=== PATIENT | female | born 1945 | race Caucasian/White ===

== ENCOUNTER 2017-02-20 07:39 | Inpatient (IN) | payer MEDICARE, OTHER ==
[2017-02-17 14:02] LABS: HEMATOCRIT 38.6 % (36.0-48.0); HEMOGLOBIN 12.8 g/dL (12.0-16.0)
[2017-02-17 14:21] LABS: BUN (BLOOD UREA NITROGEN) 13 MG/DL (6-23); CALCIUM, SERUM 9.6 MG/DL (8.5-10.4); CHLORIDE, SERUM 102 MMOL/L (96-112); CO2 (CARBON DIOXIDE) 37 MMOL/L (24-34); CREATININE 0.77 MG/DL (0.55-1.02); GFR AFRICAN AMERICAN 89 ML/MIN (>=60); GFR NON AFRICAN AMERICAN 77 ML/MIN (>=60); GLUCOSE, SERUM 86 MG/DL (60-99); POTASSIUM, SERUM 3.8 MMOL/L (3.5-5.3); SODIUM, SERUM 143 MMOL/L (135-148)
--- NOTE | ~2017-02-20 | OP ---
Record Of Operation [facility] [address] [place]. [address] NAME: JOSE FINNEGAN : 41 STATUS : DIS IN PAT#: [id number] AGE: 71 ADM/REG DATE : 02/20/17 MR#: [id number] REPORT SERV DATE: 03/01/17 DICTATED BY: STEFANO PINK DATE: 02/28/17 REPORT STATUS : Draft TRANSCRIBED BY: MODL DATE: 02/28/17 DATE OF PROCEDURE: 02/22/2017 ADDENDUM: This has already been dictated but for whatever the reason, there was a cut off, I am not sure why. This is just an addendum to the last dictation. So, at the end of the dictation where it has been cut off at the last sentence is as follows; With navigational assistance, I created a pilot highway patrol hole. Through the pedicles of C2 lateral masses of C3, 4, 5, 6, and the pedicles the C7 bilateral. After the pilot highway patrol holes were drilled, I then tapped each of the pedicles and the lateral mass. The C2-C7 lateral gutter including the facet joint and the lateral masses were decorticated. The polyaxial Vertex Select screws were inserted at each of the pedicles and lateral masses. The kaushal was then contoured for lordosis, was placed over the top loading tulip of the pedicle screws. Each of the set screws were inserted and tightened with a torque wrench providing rigid stability. Finally, a posterior lateral fusion was completed using a combination of Magna Fuse, allograft as well as extra-small dosage of bone protein. This very nicely stabilized the spine completely. Please note, I did have to extend the fusion higher and lower than originally thought because the bone was rather soft and additional points of fixation were necessary. Intraoperative, CT scan was repeated showing good position of all hardware. Vancomycin powder was placed in the wound. The myofascial layer was closed with the multiple layers of interrupted #1 Vicryl suture. The subcutaneous tissue closed with 2-0 Vicryl suture, 2-0 vertical mattress nylon suture used for skin closure. Sterile dressings applied. The patient returned to supine position. The Waldron was removed. The patient awakened, extubated, and taken recovery room in satisfactory condition having tolerated procedure well. MACARENA/JACOBY Stefano Pink D.O. / [id number] CC: [place] D.O.
--- NOTE | ~2017-02-20 | OP ---
Record Of Operation [facility] [address] [place]. [address] NAME: JOSE FINNEGAN : 41 STATUS : ADM IN PAT#: [id number] AGE: 71 ADM/REG DATE : 02/20/17 MR#: [id number] REPORT SERV DATE: 02/22/17 DICTATED BY: STEFANO PINK DATE: 02/22/17 REPORT STATUS : Draft TRANSCRIBED BY: MODDaja DATE: 02/22/17 DATE OF PROCEDURE: POSTOPERATIVE DIAGNOSIS: Grade 2 spondylolisthesis, severe spinal stenosis with cord compression and myelopathy C4-5, C5-6. POSTOPERATIVE DIAGNOSIS: Grade 2 spondylolisthesis, severe spinal stenosis with cord compression and myelopathy C4-5, C5-6. PROCEDURE: Second-stage surgery including posterior lateral spinal fusion with Vertex Select segmental instrumentation, C2 through C7. SUPERVISORY GEOGRAPHER: Gurjit Tyson. ANESTHESIA: General. ESTIMATED BLOOD LOSS: Less than 50 mL. INDICATIONS: The indications for surgery and risks were explained and listed in the history and physical. See that for detail. DESCRIPTION OF PROCEDURE: The patient was identified in the preop holding area, antibiotic prophylaxis given, brought to the operative suite. General anesthetic including endotracheal intubation was administered. Silveira catheter was already in place. The scalp was painted with Betadine solution. Waldron three-point fixation attached to the skull using 60 pounds torque in standard position. The Waldron was then attached to the top portion of the Mani frame. The patient was in a clamshell position with her neck in a neutral alignment. She was rotated 180 degrees into a prone position. The bony prominences were carefully padded. AP and lateral x-rays taken to ensure we had good alignment particularly sagittal alignment. The hairline had already been shaved. The previous sutures from two days ago were removed. The isolation drapes were placed. The neck was scrubbed with Hibiclens solution. DuraPrep was painted. Sterile drapes applied. The incision from prior stage I surgery was opened. The wound was copiously irrigated. We then used navigational registration by placing a registration frame on the spinous process of C2. The intraoperative CT scan with O-arm was obtained. CT information used to register the navigational system. With navigational assistance, I created a state pilot hole through the pedicle of C2, the lateral mass of C3, C4, C5, C6, and the pedicle of C7 bilateral. DICTATION ENDS HERE. Record Of Operation [facility] [address] [facility] [address] NAME: JOSE FINNEGAN : 43 STATUS : ADM IN [facility]#: [id number] AGE: 71 ADM/REG DATE : 02/20/17 MR#: [id number] REPORT SERV DATE: 02/22/17 DICTATED BY: STEFANO PINK DATE: 02/22/17 REPORT STATUS : Draft TRANSCRIBED BY: JACOBY DATE: 02/22/17 /JACOBY Stefano Pink D.O. / [id number] CC: [place] D.O.
--- NOTE | ~2017-02-20 | DS ---
Discharge Summary [facility] [address] [place]. [address] NAME: JOSE FINNEGAN : 41 STATUS : DIS IN PAT#: [id number] AGE: 71 ADM/REG DATE : 02/20/17 MR#: [id number] REPORT SERV DATE: 03/07/17 DICTATED BY: STEFANO PINK DATE: 03/06/17 REPORT STATUS : Draft TRANSCRIBED BY: MODDaja DATE: 03/06/17 Data Collection from hospitalization DISCHARGE DIAGNOSES: 1. Grade 2 spondylolisthesis with severe spinal stenosis and cord compression and myelopathy, C4-5. 2. Hypertension. 3. Hypercholesterolemia. 4. Tobacco abuse. 5. Osteoarthritis. 6. Former smoker. CONSULTATIONS: None. PROCEDURES PERFORMED: 1. Navigation-assisted surgery; laminectomy, foraminotomy, partial facetectomy at C4 and C5; anterior cervical diskectomy, C4-5 and C5-6; C5 corpectomy; anterior interbody fusion with allograft; stackable interbody cage, C4-C6; segmental instrumentation with Venture plating, C4-C6 on 02/20/2017. 2. Second-stage surgery including posterior lateral spinal fusion with Vertex Select segmental instrumentation, C2 through C7, 02/22/2017. PATHOLOGY: Spine, cervical bone, and tissue - fibrocartilage consistent with intervertebral disk. Benign bone fragments. MEDICATIONS: Colace 100 mg twice a day, Remeron 15 mg at bedtime, multivitamins one tablet daily, Xanax 1 mg twice a day as needed, Dulcolax 15 mg as needed, [place] 7.5/325 one to two tablets every six hours as needed, milk of magnesia 30 mL twice a day as needed, and Tenoretic half tablet every evening. CONDITION AT DISCHARGE: Stable. DISPOSITION: The patient was discharged to [facility] on a regular diet with activities as instructed. HOSPITAL COURSE: This is a 71-year-old female who presented to the office on prior to admission with neck pain, shoulder and arm pain, and rather significant weakness in the upper extremities. Plain x-rays revealed grade 2 and almost grade 3 spondylolisthesis at C4 C5. MRI showed severe canal compromise centrally as well as laterally at C4-C5. The anterior body of C5 superiorly had been eroded completely. Posteriorly, the posterior- superior edge of the body of C5 is impacted into the cord anteriorly. There was also a ligamentum flavum posteriorly that had hypertrophied and was compressing the cord, so there was a marked decrease in the overall core diameter at the C4-C5 level. Treatment options were discussed and it was elected to proceed with surgical intervention. She was admitted to the hospital at this time for further evaluation and treatment. Upon admission, she was taken to the operating room where she underwent the above-mentioned procedure. She tolerated this well, and there were no complications. On postop day #1, she Discharge Summary [facility] [address] [facility] [place]. [address] NAME: JOSE FINNEGAN : 41 STATUS : DIS IN PAT#: [id number] AGE: 71 ADM/REG DATE : 02/20/17 MR#: [id number] REPORT SERV DATE: 03/07/17 DICTATED BY: STEFANO PINK DATE: 03/06/17 REPORT STATUS : Draft TRANSCRIBED BY: MODDaja DATE: 03/06/17 was doing okay. She was able to swallow applesauce and soft foods. She was going to undergo her second stage of her surgical intervention the following day. On 02/22/2017, she was taken back to the operating room where she underwent the above-mentioned procedure. She tolerated this well, and there were no complications. On 02/23/2017, she was doing well. She had normal distal pulses. Discharge planning was performed. The next day, she said her arms were not burning like they did preoperatively. She was up sitting in a bedside chair. An ice pack was in place on her back. We encouraged her to mobilize as tolerated. Blood pressure was controlled. On 02/25/2017, discharge instructions were given. Due to her improved and stable condition, she was discharged to [facility] with the above stated instructions. Information collected by: Kimberly Deras I submit the above information as my discharge summary. TG/JACOBY Stefano Pink D.O. / [id number] CC: [place] D.O. [facility]
--- NOTE | ~2017-02-20 | PREOPHP ---
PreOp History and Physical [facility] [address] [place]. [address] NAME: JOSE FINNEGAN : 41 STATUS : ADM IN PAT#: [id number] AGE: 71 ADM/REG DATE : 02/20/17 MR#: [id number] REPORT SERV DATE: 02/20/17 DICTATED BY: STEFANO PINK DATE: 02/20/17 REPORT STATUS : Draft TRANSCRIBED BY: JACOBY DATE: 02/20/17 CHIEF COMPLAINT: Neck pain, shoulder and arm pain, weakness in her arms. HISTORY OF PRESENT ILLNESS: This is a 71-year-old female, who presented to the office just last with neck pain, shoulder and arm pain, and rather significant weakness in the upper extremities. She is so weak when I tested her, her deltoid function was only 3-/5, her biceps was 3+/5, and her muscle groups of C7 and T1 were approximately 4/5, the lower extremities seemed to be 5/5. She had hyperreflexia, upgoing toes, some sustained ankle clonus, all compatible with myelopathy. Plain x-rays reveal a grade 2, almost grade 3 spondylolisthesis at C4-C5. MRI shows severe canal compromise centrally as well as laterally at C4-C5. The anterior body of C5 superiorly has been eroded completely. Posteriorly, the posterior-superior edge of the body of C5 is impacted into the cord anteriorly. There was also ligamentum flavum posteriorly that is hypertrophied and compressing the cord, so there is a marked decrease in overall cord diameter at the C4-C5 level. With the above history, she is brought to surgery for a posterior approach initially with laminectomy and partial facetectomy of C4 and C5. We will then close posteriorly and turn anteriorly for an anterior diskectomy at C4-C5, C5-C6 and a corpectomy of C5, followed by interbody fusion with stackable cage from C4-C6 with anterior instrumentation of C4-C6. Ultimately, we will return in two to three days and add additional posterior instrumentation. The risks, benefits, alternatives and expectations, up to and including everything with quadriplegia or even , have been explained in great detail. Consent form has been signed. PAST MEDICAL HISTORY: Has included hypertension, hypercholesterolemia, tobacco abuse, osteoarthritis. She has had previous right shoulder surgery x2, bilateral knee arthroscopy and knee arthroplasty, appendectomy, cholecystectomy, colonoscopy and a polyp removal. She has also had abdominal hysterectomy, a bladder suspension surgery. In addition, she has had cataract extractions and lens implants bilaterally. CURRENT MEDICATIONS: Include Fosamax, Xanax, aspirin, Tenoretic, Mobic, Remeron, multiple vitamins, tramadol. ALLERGIES: STATIN DRUGS. SOCIAL HISTORY: She is . Retired. Has smoked previously, a [id number] history. No alcohol history. FAMILY HISTORY: Positive for hypertension and coronary artery disease. REVIEW OF SYSTEMS: She currently denies chest pain, pressure, and shortness of breath. She has had a previous cardiac stress test, which was negative. PHYSICAL EXAMINATION: VITAL SIGNS: She is 5 feet 2 inches, 125 pounds, BMI is 23. GENERAL: She is alert, cooperative, well oriented. She has some difficulty ambulating because of the imbalance and altered gait. PreOp History and Physical [address] [address] NAME: JOSE FINNEGAN : 41 STATUS : ADM IN [facility]#: [id number] AGE: 71 ADM/REG DATE : 02/20/17 MR#: [id number] REPORT SERV DATE: 02/20/17 DICTATED BY: STEFANO PINK DATE: 02/20/17 REPORT STATUS : Draft TRANSCRIBED BY: JACOBY DATE: 02/20/17 HEENT: She is normocephalic. Pupils have been altered by prior surgery. Extraocular are muscles intact. Oral exam is grossly normal. NECK: Has no gross deformities. She has a negative Spurling sign. EXTREMITIES: Negative abducted arm sign. A mildly positive Lhermitte sign with extension, but negative with flexion. Her upper extremity strength is outlined above. Her deltoid is 3-/5. Her biceps is 3+/5. The wrist extensor, wrist flexor, and intrinsics are 4/5. The lower extremities are 5/5, but there is hyperreflexia, there are upgoing toes, and there is some ankle clonus. Sensory exam decreased in more of a stocking-glove distribution in the arms and legs. ORTHOPEDIC: She has no pain with moving hips, knees, or ankles. There are good pulses in all four extremities. No abnormal skin lesions are found. ASSESSMENT: Grade 2 spondylolisthesis and severe spinal stenosis with myelopathy, C4-C5. RECOMMENDATIONS: As listed above. /MODL Stefano Pink D.O. / [id number] CC: [place] D.O.
--- NOTE | ~2017-02-20 | OP ---
Record Of Operation [facility] [address] [place]. [address] NAME: JOSE FINNEGAN : 41 STATUS : ADM IN PAT#: [id number] AGE: 71 ADM/REG DATE : 02/20/17 MR#: [id number] REPORT SERV DATE: 02/20/17 DICTATED BY: STEFANO PINK DATE: 02/20/17 REPORT STATUS : Draft TRANSCRIBED BY: MODL DATE: 02/20/17 DATE OF PROCEDURE: 02/20/2017 PREOPERATIVE DIAGNOSIS: Grade 2 spondylolisthesis, severe spinal stenosis, with cord compression, and myelopathy, C4-5. POSTOPERATIVE DIAGNOSIS: Grade 2 spondylolisthesis, severe spinal stenosis, with cord compression, and myelopathy, C4-5. PROCEDURES: 1. Navigation-assisted surgery. 2. Laminectomy, foraminotomy, partial facetectomy at C4 and C5. 3. Anterior cervical diskectomy, C4-5 and C5-6. 4. C5 corpectomy. 5. Anterior interbody fusion with allograft. 6. Stackable interbody cage, C4 to C6. 7. Segmental instrumentation with Venture plating, C4 to C6. SURGEON: Stefano Pink D.O. SUPERVISOR [employer]BE[employer] TEXTILE: Gurjit Tyson. ANESTHESIA: General. ESTIMATED BLOOD LOSS: 50 mL. INDICATION FOR SURGERY: Indication for surgery and risks were explained in the history and physical. See that for detail. DESCRIPTION OF PROCEDURE: Antibiotic prophylaxis was given. Neurophysiology monitoring leads were inserted. The patient was brought to the operative suite. General anesthetic including endotracheal intubation was administered. Silveira catheter was placed with sterile technique. The patient was in a neutral alignment on a Mani spine frame. The scalp was painted with Betadine solution. Waldron three-point fixation was attached to the skull using 60 pounds torque in standard position. The Waldron was attached to the top portion of the Mani spine frame. She was in a clamshell position rotated 180 degrees into a prone position. Bony prominences were carefully padded. The hairline was shaved. Isolation drapes were placed. The neck was scrubbed with Hibiclens solution. DuraPrep was painted. Sterile drapes were applied. With loupe magnification and headlight illumination, a midline incision was carried out. The ligamentum nuchae was divided in the midline. The paraspinous muscles were retracted laterally all the way to the tip of the lateral masses from C2 to C7. The interspinous ligaments and tissue removed between C5-6, C4-5, and C3-4. I then entered at the bottom of C5 using a combination of a cutting bur, a tatiana bur, and a thin-footed 1 and 2 mm Kerrison rongeur. I removed the entire lamina of C5 and then C4. I removed a portion of Record Of Operation [place] [address] [place]. [address] NAME: JOSE FINNEGAN : 41 STATUS : ADM IN PAT#: [id number] AGE: 71 ADM/REG DATE : 02/20/17 MR#: [id number] REPORT SERV DATE: 02/20/17 DICTATED BY: STEFANO PINK DATE: 02/20/17 REPORT STATUS : Draft TRANSCRIBED BY: JACOBY DATE: 02/20/17 the facet using burs. The foramen and the canal was wide open, afterwards the wound was irrigated. We then placed some vancomycin powder in the wound. The myofascial layer was closed with interrupted #1 Vicryl suture. The subcutaneous tissue closed with 2-0 Vicryl suture, 2-0 vertical mattress nylon suture was used for skin closure. Sterile dressings were then applied. The patient was then re-clamshelled on a Mani spine frame. Rotated another 180 degrees back to a supine position and the Waldron was attached to the director of head start of the Mani frame. The [employer] navigational registration frame was attached to the [place]. Isolation drapes were placed. The neck was scrubbed with Hibiclens solution. DuraPrep was painted. Sterile drapes were applied. Please note, that in the posterior procedure as well as the anterior procedure, we did use navigational assistance throughout the surgery, because we felt that it was necessary to have the safest and most precise dissection, as well as using it to identify the correct level of surgery, and avoid the most radiation possible. After the anterior repositioning, the intraoperative CT scan with O-arm was repeated. CT information again was used to register the navigational system. After a midbody of L5 on the left side, a transverse 2.5 cm skin incision was carried out using a Beltrán-Carballo technique. The platysma muscle was incised in line with the skin incision. The superficial layer of the deep cervical fascia was released along the anterior border of sternocleidomastoid. Blunt dissection was carried out to the retropharyngeal space where the longus coli muscles were subperiosteally elevated. On the right side particularly at C5-6, a very large anterior osteophyte was debrided. The retractors were placed. The microscope continued to be used sterilely draped. With navigational assistance, we re-identified the correct level of surgery. We placed a [place] distractor pin in the mid body of C6 and at C4. We then used navigational assistance, we outlined the cuts for the corpectomy. We identified the foramen transversarium using navigational assistance. I used a 3 mm tatiana bur and cut the left and right side a trough. I then carried out discectomies at C4-5 and C5-6 using curettes and rongeurs. I then completed the corpectomy with a cutting bur, a tatiana burs and 1 mm Kerrison rongeur. The corpectomy was taken all the way back to the posterior longitudinal ligament. There was some foraminal impingement laterally at C5-6 in particular and we decompressed it, and centrally at C4-5 the cord was markedly compressed, and by removing the posterior superior edge of the bony margin, as well as the posterior longitudinal ligament. At C4-5, we decompressed the cord nicely anteriorly. The wound was irrigated. We then measured the distance from the inferior endplate of C4 to the superior endplate of C6. The 20 mm stackable cage was placed together, the local bone graft was packed in the cage, the cage was inserted in the midline. Traction was released locking the graft in good position. Finally, a 6-hole Venture plate was placed over the anterior bodies of C4 and C6. We used a 4 mm x 15 mm rescue screws, we fixed the plate to the bodies of C4 and C6. Intraoperative CT scan with O-arm repeated showing excellent position of the implants, good taoism of disk height and lordosis, and complete decompression of the cord at C4-5, where the worst compression was found. The #7 flat Albert drain was inserted in the retropharyngeal space. The platysma was closed with a running 3-0 Vicryl suture. The subcutaneous tissue was closed with 3-0 Vicryl suture, and subcuticular 4-0 PDS was used for skin closure. Sterile dressings were applied. The patient awakened, extubated, and taken recovery room in Record Of Operation [address] [address] NAME: JOSE FINNEGAN : 41 STATUS : ADM IN [facility]#: [id number] AGE: 71 ADM/REG DATE : 02/20/17 MR#: [id number] REPORT SERV DATE: 02/20/17 DICTATED BY: STEFANO PINK DATE: 02/20/17 REPORT STATUS : Draft TRANSCRIBED BY: MODL DATE: 02/20/17 satisfactory condition having tolerated procedure well. Sponge, needle, and instrument counts were correct. No intraoperative complications were noted. /JACOBY Stefano Pink D.O. / [id number] CC: Stefano Pink D.O.
[~2017-02-20 07:39] MED LIST: ASAB PO; FOSAMAX70 MG PO; HARD NAILS; LOTE40 PO; MOBIC15 MG PO; MULTIPLE VIT PO; REM15 PO; TENORETIC1 TAB PO; ULTRAM50 PO; XANAX1 MG PO; ZOCOR40 PO
[2017-02-23 04:51] LABS: HEMATOCRIT 37.4 % (36.0-48.0); HEMOGLOBIN 12.7 g/dL (12.0-16.0); MEAN CORPUSCULAR HEMOGLOB 29.6 pg (26.0-34.0); MEAN CORPUSCULAR VOLUME 87.2 fL (80-100); MEAN PLATELET VOLUME 10.5 fL (9.2-13.0); PLATELET COUNT 250 10/3/uL (150-400); RBC DISTRIBUTION WIDTH 12.6 % (12.0-16.0); RED CELL COUNT 4.29 10/6/uL (4.0-5.6)
[2017-02-23 04:53] LABS: MANUAL DIFF YES %; WHITE BLOOD CELLS 14.3 10/3/uL (4.5-10.5)
[2017-02-23 05:08] LABS: BUN (BLOOD UREA NITROGEN) 12 MG/DL (6-23); CALCIUM, SERUM 9.6 MG/DL (8.5-10.4); CHLORIDE, SERUM 97 MMOL/L (96-112); CREATININE 0.64 MG/DL (0.55-1.02); GFR AFRICAN AMERICAN 103 ML/MIN (>=60); GFR NON AFRICAN AMERICAN 89 ML/MIN (>=60); SODIUM, SERUM 137 MMOL/L (135-148)
[2017-02-23 05:15] LABS: LYMPHOCYTES 9 %; LYMPHOCYTES ABSOLUTE (CALC) 1.29 10/3/uL (0.67-4.30); MONOCYTES 12 %; MONOCYTES ABSOLUTE (CALC) 1.72 10/3/uL (0.21-1.20); PLATELET ESTIMATE ADQ (ADEQUATE); RBC MORPHOLOGY NORM (NORMAL); SEGMENTED NEUTROPHIL (0) 79 %; TOTAL NUCLEATED CELLS 100
[2017-02-23 05:16] LABS: CO2 (CARBON DIOXIDE) 32 MMOL/L (24-34); GLUCOSE, SERUM 133 MG/DL (60-99)
[2017-02-23 05:17] LABS: POTASSIUM, SERUM 4.1 MMOL/L (3.5-5.3)
== END 2017-02-25 14:19 | DRG 454 ==
LOC: SDC/OF 07:39 → PACU 15:07 → 3SO 16:53
PROVIDERS: Orthopaedic Surgery Orthopaedic Surgery of the Spine
DX: M43.12 Spondylolisthesis, cervical region (principal); M50.021 Cervical disc disorder at C4-C5 level with myelopathy; I10 Essential (primary) hypertension; E78.5 Hyperlipidemia, unspecified; F17.210 Nicotine dependence, cigarettes, uncomplicated
CPT/HCPCS: 71010; 80048; 82962; 85014; 85018; 85025; 87641; 88304; 88311; 93005; 97110-GP; 97116-GP; 97161-GP; A9270-GY; C1713; C1781; J0690; J1170; J1644; J2250; J2270; J2405; J2710; J3010; J3370